=== PATIENT | female | born 1995 | race African-American/Black ===

== ENCOUNTER 2016-11-04 10:57 | Outpatient (CLI) | payer OTHER ==
[2016-11-04 11:11] VITALS: BP 140/96
[2016-11-04] MEDS ORDERED: PRENTAB9 PO (11:16)
[2016-11-04 11:58] LABS: MEAN CORPUSCULAR HEMOGLOBIN 31.7 pg (27.0-33.0); MEAN CORPUSCULAR HGB CONC 34.4 g/dl (32.0-36.5); RED CELL DISTRIBUTION WIDTH 13.1 % (11.5-14.5); WHITE BLOOD COUNT 10.3 K/mm3 (4.0-10.0)
[2016-11-04 12:18] LABS: ALBUMIN 2.8 GM/DL (3.2-5.2); ALBUMIN/GLOBULIN RATIO 0.76 (1.00-1.93); ALKALINE PHOSPHATASE 182 U/L (45-117); ALT/SGPT 17 U/L (12-78); ANION GAP 9 MEQ/L (8-16); AST/SGOT 17 U/L (15-37); BILIRUBIN,TOTAL 0.2 MG/DL (0.2-1.0); BLOOD UREA NITROGEN 9 MG/DL (7-18); CALCIUM LEVEL 9.1 MG/DL (8.5-10.1); CARBON DIOXIDE LEVEL 21 MEQ/L (21-32); CHLORIDE LEVEL 106 MEQ/L (98-107); GLUCOSE, FASTING 97 MG/DL (70-105); POTASSIUM SERUM 4.4 MEQ/L (3.5-5.1); SODIUM LEVEL 136 MEQ/L (136-145); TOTAL PROTEIN 6.5 GM/DL (6.4-8.2); URIC ACID 3.3 MG/DL (2.6-6.0)
== END 2016-11-04 13:35 | disposition home or self-care (01) ==
LOC: M LDO 10:57
PROVIDERS: ATTEND Obstetrics & Gynecology
DX: O13.3 Gestational [pregnancy-induced] hypertension without significant proteinuria, third trimester (principal); Z3A.38 38 weeks gestation of pregnancy

== ENCOUNTER 2016-11-06 18:26 | Inpatient (IN) | payer OTHER ==
[2016-11-06] VITALS (7 sets, daily range): BP systolic 124–156; BP diastolic 60–98
[~2016-11-06] VITALS: Ht 160 cm; Wt 90.8 kg
[~2016-11-06 18:26] MED LIST: PRENTAB9 PO
[2016-11-06] MEDS ORDERED: PENICILLIN G POTASSIUM IV 5 MU in D5W MINI-BAG PLUS 100 ML IV STA (18:53)
[2016-11-06 19:26] LABS: BASO % 0.4 % (0.0-1.0); EOS # 0.2 K/mm3 (0.0-0.50); EOS % 2.9 % (0.0-3.0); LARGE UNSTAINED CELL # 0.2 K/mm3 (0.0-0.4); LARGE UNSTAINED CELL % 1.9 % (0.0-4.0); LYMPH % 24.1 % (24.0-44.0); MEAN CORPUSCULAR HEMOGLOBIN 32.4 pg (27.0-33.0); MEAN CORPUSCULAR HGB CONC 34.2 g/dl (32.0-36.5); MEAN CORPUSCULAR VOLUME 94.8 fl (80.0-96.0); MONO # 0.5 K/mm3 (0.0-0.8); MONO % 6.1 % (0.0-5.0); NEUTROPHILS # 5.3 K/mm3 (1.8-7.7); NEUTROPHILS % 64.6 % (36.0-66.0); PLATELET COUNT, AUTOMATED 243 k/mm3 (150-450); RED CELL DISTRIBUTION WIDTH 12.8 % (11.5-14.5); WHITE BLOOD COUNT 8.2 K/mm3 (4.0-10.0)
[2016-11-06] MEDS ORDERED: LABETALOL HCL 100 MG/20 ML VIAL IV ONE (19:45)
[2016-11-06] MEDS: miSOPROStol 50 MCG 1/2 TAB (S0191) PO SCH ×2 (19:46→23:45)
[2016-11-06 19:55] LABS: ALT/SGPT 16 U/L (12-78); AST/SGOT 19 U/L (15-37); BILIRUBIN,TOTAL 0.2 MG/DL (0.2-1.0); CREATININE FOR GFR 0.72 MG/DL (0.55-1.02); URIC ACID 3.8 MG/DL (2.6-6.0)
[2016-11-06] MEDS ORDERED: LABETALOL HCL 100 MG/20 ML VIAL IV SCH (20:00)
[2016-11-06] MEDS ORDERED: ACETAMINOPHEN 500 MG TAB PO PRN (20:15)
[2016-11-06] MEDS ORDERED: HYDROCORTISONE 1% CREAM 30 GM TOP SCH (21:00)
[2016-11-06] MEDS ORDERED: PENICILLIN G POTASSIUM IV 2.5 MU in D5W 100 ML IV SCH (23:00)
[2016-11-07] VITALS (38 sets, daily range): BP systolic 116–159; BP diastolic 58–99
[2016-11-07] MEDS: LR 1,000 ML IV SCH ×2 (02:53→08:52)
[2016-11-07] MEDS: miSOPROStol 50 MCG 1/2 TAB (S0191) PO SCH (03:46)
[2016-11-07] MEDS ORDERED: OXYTOCIN DRIP 30 UNITS in APPROPRIATE DILUENT 1 EA IV SCH ×4 (07:30)
[2016-11-07] MEDS ORDERED: PENICILLIN G POTASSIUM IV 5 MU in D5W MINI-BAG PLUS 100 ML IV STA ×2 (08:04→08:13)
[2016-11-07] MEDS ORDERED: FENTANYL 2MCG/ML ROPIVACAINE 0.2% IN 0.9% NACL 200ML IVBAG As Ordered ONE (22:39)
[2016-11-07 22:48] LABS: MEAN CORPUSCULAR HEMOGLOBIN 30.9 pg (27.0-33.0); MEAN CORPUSCULAR HGB CONC 33.6 g/dl (32.0-36.5); MEAN CORPUSCULAR VOLUME 92.1 fl (80.0-96.0); WHITE BLOOD COUNT 10.3 K/mm3 (4.0-10.0)
[2016-11-08] VITALS (102 sets, daily range): BP systolic 119–179; BP diastolic 57–113; O2SAT 99
[2016-11-08] MEDS ORDERED: FENTANYL/ROPIVACAINE/NACL BAG 200 ML EPIDURAL SCH (00:10)
[2016-11-08] MEDS ORDERED: ePHEDrine SULFATE 25 MG/5 ML(5MG/ML) SYRINGE IV PRN ×2 (00:10→18:45)
[2016-11-08] MEDS ORDERED: EPIDURAL/PCA KEYS XX PRN ×2 (00:10→18:45)
[2016-11-08] MEDS ORDERED: NALOXONE INJ 0.4 MG/1 ML VIAL (J2310) IV PRN ×2 (00:10→18:45)
[2016-11-08] MEDS ORDERED: REFRIGERATOR IV KEYS XX PRN ×2 (00:10→18:45)
[2016-11-08] MEDS ORDERED: EPIDURAL COMMENT XX SCH ×2 (00:10→18:45)
[2016-11-08] MEDS ORDERED: diphenhydrAMINE INJ 50MG/ML VIAL (J1200) IV PRN ×2 (00:10→18:45)
[2016-11-08] MEDS ORDERED: ONDANSETRON 4MG/2ML VIAL (J2405) IV PRN ×2 (00:10→18:45)
[2016-11-08] MEDS ORDERED: LACTATED RINGER'S 1000 ML IV PRN ×2 (00:10→18:45)
[2016-11-08] MEDS ORDERED: PENICILLIN G POTASSIUM 5 MU VIAL As Ordered ONE (01:30)
[2016-11-08] MEDS: PENICILLIN G POTASSIUM IV 2.5 MU in D5W 100 ML IV SCH ×3 (05:28→13:54)
--- NOTE | 2016-11-08 09:35 | IPNPDOC ---
Text Note Date of Service The patient was seen on 11/08/16. NOTE [id number] @ [address] Pham @ 0830. 21 yo G1 @ 39+0 with pre-e without severe features. IOL started on Wednesday, [id number]. S: comfortable resting in right tilt and epidural infusing. Mother and FOB are at bedside. O: VS- BPs remain in mild range, Temp is starting to increase-currently 100.2, all other VS WNL FHR- BL-150, mod variability, + accels, early decels CTX- Q 1-3 min, lasting 50-120 seconds, palpated as strong, resting tone palpated as soft SVE- 9/100/-1, soft/ant/vtx ROM x 7 hours with thick mec PMH- sleep apnea PSH- denies Meds- PNV Allergies- NKDA GBS- positive EFW- 3600 grams A: 21 yo G1 @ 39+0 with pre-e without severe features. CAT I FHR, continued cervical change P: continue to monitor and assess, titrate pitocin per unit protocol, reassess in 2 hours or prn. VS,Fishbone, I+O VS, Fishbone, I+O Laboratory Tests 11/07/16 22:43 Red Blood Count 4.05, Mean Corpuscular Volume 92.1, Mean Corpuscular Hemoglobin 30.9, Mean Corpuscular Hemoglobin Concent 33.6, Red Cell Distribution Width 13.0 Vital Signs Date Time Temp Pulse Resp B/P (MAP) Pulse Ox O2 Delivery O2 Flow Rate FiO2 11/08/16 06:56 93 144/82 (102) 11/08/16 02:27 20 11/07/16 03:47 98.0 I&O- Last 24 Hours up to 6 AM 11/08/16 06:00 Intake Total 600 ml Output Total 1450 ml Balance -850 ml SAM ANDERSON CNM November 08, 2016 09:35
--- NOTE | 2016-11-08 11:54 | IPNPDOC ---
Text Note Date of Service The patient was seen on 11/08/16. NOTE [id number] @ 1149 Called to bedside @ 1140 for a prolonged deceleration. Upon arrival to room FHR was in the 140s. It returned to 150s within a minute. O: VS- BPs mild range, T-100.0 FHR- BL-150, moderate variability, + accels, prolonged decel and early decels CTX- Q 2-3 min, lasting 60-120 seconds Pit @ 16 mU/min SVE- anterior lip/100/+1 per RN exam A: 21 yo G1 @ 39+0 with IOL for pre-e without severe features. P: continue to monitor and assess, reassess in 1 hour, cont to titrate pitocin per unit protocol. VS,Fishbone, I+O VS, Fishbone, I+O Laboratory Tests 11/07/16 22:43 Red Blood Count 4.05, Mean Corpuscular Volume 92.1, Mean Corpuscular Hemoglobin 30.9, Mean Corpuscular Hemoglobin Concent 33.6, Red Cell Distribution Width 13.0 Vital Signs Date Time Temp Pulse Resp B/P (MAP) Pulse Ox O2 Delivery O2 Flow Rate FiO2 11/08/16 06:56 93 144/82 (102) 11/08/16 02:27 20 11/07/16 03:47 98.0 I&O- Last 24 Hours up to 6 AM 11/08/16 05:59 Intake Total 600 ml Output Total 1450 ml Balance -850 ml SAM ANDERSON CNM November 08, 2016 11:54
[2016-11-08] MEDS: LR 1,000 ML IV SCH ×2 (12:37→22:01)
[2016-11-08] MEDS ORDERED: LABETALOL HCL 100 MG/20 ML VIAL IV STA ×3 (14:28→19:03)
[2016-11-08] MEDS ORDERED: LABETALOL HCL 100 MG/20 ML VIAL As Ordered ONE (14:29)
[2016-11-08] MEDS ORDERED: MAGNESIUM SULFATE 4% INJ 20GM/500ML (40MG/ML) (J3475) As Ordered ONE ×2 (14:38→18:44)
[2016-11-08] MEDS ORDERED: MAG Sulf (L&D) 4 GM/100 ML 4 GM in APPROPRIATE DILUENT 1 EA IV ONE (14:45)
[2016-11-08] MEDS: MAG Sulf (OBGYN) 20GM/500ML 20,000 MG in APPROPRIATE DILUENT 1 EA IV SCH (14:49)
[2016-11-08 14:58] LABS: MEAN CORPUSCULAR HEMOGLOBIN 31.3 pg (27.0-33.0); MEAN CORPUSCULAR HGB CONC 33.4 g/dl (32.0-36.5); MEAN CORPUSCULAR VOLUME 93.7 fl (80.0-96.0); RED CELL DISTRIBUTION WIDTH 12.6 % (11.5-14.5); WHITE BLOOD COUNT 13.3 K/mm3 (4.0-10.0)
[2016-11-08 15:27] LABS: ALBUMIN 2.3 GM/DL (3.2-5.2); ALBUMIN/GLOBULIN RATIO 0.77 (1.00-1.93); ALKALINE PHOSPHATASE 205 U/L (45-117); ALT/SGPT 14 U/L (12-78); ANION GAP 10 MEQ/L (8-16); AST/SGOT 19 U/L (15-37); BILIRUBIN,TOTAL 0.5 MG/DL (0.2-1.0); BLOOD UREA NITROGEN 8 MG/DL (7-18); CALCIUM LEVEL 8.2 MG/DL (8.5-10.1); CARBON DIOXIDE LEVEL 18 MEQ/L (21-32); CHLORIDE LEVEL 109 MEQ/L (98-107); CREATININE FOR GFR 1.44 MG/DL (0.55-1.02); GLUCOSE, FASTING 88 MG/DL (70-105); POTASSIUM SERUM 4.6 MEQ/L (3.5-5.1); SODIUM LEVEL 137 MEQ/L (136-145); TOTAL PROTEIN 5.3 GM/DL (6.4-8.2); URIC ACID 4.1 MG/DL (2.6-6.0)
[2016-11-08] MEDS ORDERED: hydrALAZINE INJ 20 MG/ML VIAL As Ordered ONE (15:34)
--- NOTE | 2016-11-08 15:40 | IPNPDOC ---
Text Note Date of Service The patient was seen on 11/08/16. NOTE [id number] @ [address] Giordano. Informed him the patient has had multiple BPs 170s/ 90s. She was given 20 mg labetalol IV. Mag bolus started(4gram), will go to 2 grams of mag IV when bolus is complete. Informed patient has mad no progress in the 1 hour of laboring down and 30 min of pushing. Unable to determine head position d/t caput that continues to increase. Dr. Giordano informed me I was doing everything right and to keep him informed. VS,Fishbone, I+O VS, Fishbone, I+O Laboratory Tests 11/07/16 22:43 Red Blood Count 4.05, Mean Corpuscular Volume 92.1, Mean Corpuscular Hemoglobin 30.9, Mean Corpuscular Hemoglobin Concent 33.6, Red Cell Distribution Width 13.0 11/08/16 14:50 Red Blood Count 4.29, Mean Corpuscular Volume 93.7, Mean Corpuscular Hemoglobin 31.3, Mean Corpuscular Hemoglobin Concent 33.4, Red Cell Distribution Width 12.6 Vital Signs Date Time Temp Pulse Resp B/P (MAP) Pulse Ox O2 Delivery O2 Flow Rate FiO2 11/08/16 15:06 98 165/92 11/08/16 02:27 20 11/07/16 03:47 98.0 I&O- Last 24 Hours up to 6 AM 11/08/16 06:00 Intake Total 600 ml Output Total 1450 ml Balance -850 ml SAM ANDERSON CNM November 08, 2016 15:40
--- NOTE | 2016-11-08 15:42 | ED PDOC ---
Provider Note [id number] @ [address] Giordano via text @ 5630 second dose of labetalol 20 mg IV being given d/t BPs 170s/90s. SAM ANDERSON CNM November 08, 2016 15:42
[2016-11-08] MEDS ORDERED: hydrALAZINE INJ 20 MG/ML VIAL IV ONE ×3 (15:45→19:00)
--- NOTE | 2016-11-08 15:45 | IPNPDOC ---
Text Note Date of Service The patient was seen on 11/08/16. NOTE [id number] @ 1530- Sessions notified via text pt continues to have severe range BPs 25 minutes after 2nd dose of labetalol. Sessions recommended 5 mg hydralazine and keep pushing. Informed him she has not stopped pushing and has made no progress in the last 90 minutes of pushing. She also did not make progress when she labored down for 1 hour. VS,Fishbone, I+O VS, Fishbone, I+O Laboratory Tests 11/07/16 22:43 Red Blood Count 4.05, Mean Corpuscular Volume 92.1, Mean Corpuscular Hemoglobin 30.9, Mean Corpuscular Hemoglobin Concent 33.6, Red Cell Distribution Width 13.0 11/08/16 14:50 Red Blood Count 4.29, Mean Corpuscular Volume 93.7, Mean Corpuscular Hemoglobin 31.3, Mean Corpuscular Hemoglobin Concent 33.4, Red Cell Distribution Width 12.6 , Calcium Level 8.2 L, Aspartate Amino Transf (AST/SGOT) 19, Alanine Aminotransferase (ALT/SGPT) 14, Lactate Dehydrogenase 187, Alkaline Phosphatase 205 H, Total Bilirubin 0.5 #, Uric Acid 4.1, Total Protein 5.3 L, Albumin 2.3 L Vital Signs Date Time Temp Pulse Resp B/P (MAP) Pulse Ox O2 Delivery O2 Flow Rate FiO2 11/08/16 15:06 98 165/92 11/08/16 02:27 20 11/07/16 03:47 98.0 I&O- Last 24 Hours up to 6 AM 11/08/16 06:00 Intake Total 600 ml Output Total 1450 ml Balance -850 ml SAM ANDERSON CNM November 08, 2016 15:45
--- NOTE | 2016-11-08 16:31 | IPNPDOC ---
Text Note Date of Service The patient was seen on 11/08/16. NOTE [id number] @ 1600 Ms. Garrido has pushed for 2 hours with no progress, but continued increase in caput. Dr. Giordano notified. He is on his way to the hospital to evaluate. @ 9648 Dr. Giordano evaluated Ms. Garrido and discussed safest method of delivery. Recommendation for C-S d/t continued elevated station with 2 1/2 hours of pushing. Pt consents to a C-S. Pitocin and mag stopped per Dr. Giordano request. Care given to Dr. Giordano. VS,Fishbone, I+O VS, Fishbone, I+O Laboratory Tests 11/07/16 22:43 Red Blood Count 4.05, Mean Corpuscular Volume 92.1, Mean Corpuscular Hemoglobin 30.9, Mean Corpuscular Hemoglobin Concent 33.6, Red Cell Distribution Width 13.0 11/08/16 14:50 Red Blood Count 4.29, Mean Corpuscular Volume 93.7, Mean Corpuscular Hemoglobin 31.3, Mean Corpuscular Hemoglobin Concent 33.4, Red Cell Distribution Width 12.6 , Calcium Level 8.2 L, Aspartate Amino Transf (AST/SGOT) 19, Alanine Aminotransferase (ALT/SGPT) 14, Lactate Dehydrogenase 187, Alkaline Phosphatase 205 H, Total Bilirubin 0.5 #, Uric Acid 4.1, Total Protein 5.3 L, Albumin 2.3 L Vital Signs Date Time Temp Pulse Resp B/P (MAP) Pulse Ox O2 Delivery O2 Flow Rate FiO2 11/08/16 15:06 98 165/92 11/08/16 02:27 20 11/07/16 03:47 98.0 I&O- Last 24 Hours up to 6 AM 11/08/16 06:00 Intake Total 600 ml Output Total 1450 ml Balance -850 ml SAM ANDERSON CNM November 08, 2016 16:31
--- NOTE | 2016-11-08 16:43 | IPNPDOC ---
Text Note Date of Service The patient was seen on 11/08/16. NOTE I was called to evaluate this pt. Chart reviewed. Admitted the evening at 38+ 5 with the dx of CARRILLOTN. Miso X3 and pitocin. Passive descent for 1 hr. Has been pushing 2.5 hrs and per CNM caring for her has not moved the vtx at all, only caput has increased. When I examined her her pelvic is narrow and the vtx is not descended past 0 station. Unable to tell position due to significant edema of the labia and high station. NST is reassuring, reg ctx's. Mag sulfate was started a few hours ago due to several severe range BP's, received Labetalol and Hydralazine IV while pushing. I rec delivery for arrest of descent. Meconium is present, will have the hematology technologist at delivery. Informed consent obtained. Mag sulfate and Pitocin shut off. Dr Corley, anesthesia, called. To OR Sessions VS,Candido, I+O VS, Candido I+O Laboratory Tests 11/07/16 22:43 Red Blood Count 4.05, Mean Corpuscular Volume 92.1, Mean Corpuscular Hemoglobin 30.9, Mean Corpuscular Hemoglobin Concent 33.6, Red Cell Distribution Width 13.0 11/08/16 14:50 Red Blood Count 4.29, Mean Corpuscular Volume 93.7, Mean Corpuscular Hemoglobin 31.3, Mean Corpuscular Hemoglobin Concent 33.4, Red Cell Distribution Width 12.6 , Calcium Level 8.2 L, Aspartate Amino Transf (AST/SGOT) 19, Alanine Aminotransferase (ALT/SGPT) 14, Lactate Dehydrogenase 187, Alkaline Phosphatase 205 H, Total Bilirubin 0.5 #, Uric Acid 4.1, Total Protein 5.3 L, Albumin 2.3 L Vital Signs Date Time Temp Pulse Resp B/P (MAP) Pulse Ox O2 Delivery O2 Flow Rate FiO2 11/08/16 15:39 172/102 11/08/16 15:06 98 11/08/16 02:27 20 11/07/16 03:47 98.0 I&O- Last 24 Hours up to 6 AM 11/08/16 06:00 Intake Total 600 ml Output Total 1450 ml Balance -850 ml SESSIONS,YOHANA Pendleton MD November 08, 2016 16:43
[2016-11-08] MEDS ORDERED: BICITRA 30ML SOLN UDC PO ONE (16:45)
[2016-11-08] MEDS ORDERED: OXYTOCIN INJ 10 UNITS/ML VIAL (J2590) As Ordered ONE (16:52)
[2016-11-08] MEDS ORDERED: LIDOCAINE 2% W/EPIN INJ 20ML **PRES FREE As Ordered ONE ×2 (16:55→17:17)
[2016-11-08 17:47] LABS: CORD GAS ABE V -6.7; CORD GAS HCO3 V 20.6 MEQ/L; CORD GAS PCO2 V 47.4 mmHg; CORD GAS PH V 7.256 UNITS; CORD GAS PO2 V 20.3 mmHg; CORD GAS SBC V 17.8 MEQ/L; CORD GAS TCO2 V 22.1 MEQ/L
[2016-11-08 17:48] LABS: CORD GAS O2 SAT A < 15.0 %; CORD GAS PO2 A 10.8 mmHg
[2016-11-08 17:50] LABS: CORD GAS HCO3 A 23.2 MEQ/L; CORD GAS PH A 7.198 UNITS; CORD GAS TCO2 A 25.1 MEQ/L
[2016-11-08] MEDS ORDERED: CALCIUM GLUCONATE 1,000 MG in D5W MINI-BAG PLUS 100 ML IV PRN (18:30)
[2016-11-08] MEDS ORDERED: MEASLES,MUMPS,RUBELLA VACCINE INJ (MMR-II) (90707) SC SCH (18:30)
[2016-11-08] MEDS ORDERED: METOCLOPRAMIDE INJ 10MG/2ML VIAL (J2765) IV PRN (18:30)
[2016-11-08] MEDS ORDERED: RHOGAM 300 MCG (1500 IU) INJ (J2790) IM SCH (18:30)
[2016-11-08] MEDS ORDERED: ROPIVACAINE HCL IVBAG 200 ML EPIDURAL SCH (19:00)
[2016-11-08] MEDS: KETOROLAC 30 MG/ML VIAL (J1885) IV SCH (20:00)
[2016-11-08] MEDS ORDERED: LABETALOL 200 MG TAB PO SCH (20:00)
[2016-11-08] MEDS: DOCUSATE SODIUM 100 MG CAP PO SCH (21:52)
[2016-11-08] MEDS: LABETALOL 200 MG TAB PO SCH (22:08)
[2016-11-09] VITALS (14 sets, daily range): BP systolic 115–136; BP diastolic 57–82; O2SAT 97–99
[2016-11-09] MEDS: KETOROLAC 30 MG/ML VIAL (J1885) IV SCH ×3 (01:42→13:48)
[2016-11-09] MEDS: MAG Sulf (OBGYN) 20GM/500ML 20,000 MG in APPROPRIATE DILUENT 1 EA IV SCH (05:02)
[2016-11-09] MEDS: LABETALOL 200 MG TAB PO SCH ×3 (05:14→21:41)
[2016-11-09 05:23] LABS: MEAN CORPUSCULAR HEMOGLOBIN 32.1 pg (27.0-33.0); MEAN CORPUSCULAR HGB CONC 34.3 g/dl (32.0-36.5); MEAN CORPUSCULAR VOLUME 93.6 fl (80.0-96.0); RED CELL DISTRIBUTION WIDTH 12.8 % (11.5-14.5); WHITE BLOOD COUNT 16.2 K/mm3 (4.0-10.0)
[2016-11-09 05:52] LABS: ALT/SGPT 11 U/L (12-78); AST/SGOT 25 U/L (15-37); BILIRUBIN,TOTAL 0.4 MG/DL (0.2-1.0); URIC ACID 4.8 MG/DL (2.6-6.0)
[2016-11-09] MEDS: LR 1,000 ML IV SCH (09:35)
[2016-11-09] MEDS: PRENATAL VITAMIN TAB PO SCH (09:44)
[2016-11-09] MEDS: DOCUSATE SODIUM 100 MG CAP PO SCH ×2 (09:44→21:40)
[2016-11-09] MEDS: PERCOCET 5MG/325MG TAB PO PRN ×2 (09:44→18:51)
[2016-11-09] MEDS ORDERED: SLF 3 ML SYR IV PRN (09:45)
--- NOTE | 2016-11-09 09:59 | RO ---
DATE OF PROCEDURE: 11/08/2016 PREOPERATIVE DIAGNOSIS: Arrest of descent after 2-1/2 hours of pushing. POSTOPERATIVE DIAGNOSIS: Arrest of descent after 2-1/2 hours of pushing. PROCEDURE: Primary delivery. SURGEON: Twan Giordano MD [employer] DEPARTMENT CHAIR: Camila Gaines CNM ANESTHESIA: Epidural. ESTIMATED BLOOD LOSS: 500 mL. DRAINS: 100 mL of clear urine out the Nogueira catheter at the end of the procedure. FLUIDS: 1500 Lactated Ringer's. PATHOLOGY: Placenta. INDICATION: Patient was admitted at 38 plus 5 with a new diagnosis of gestational hypertension. She underwent a misoprostol and eventual pitocin induction. She was found to be complete, allowed for passive descent for 1 hour and then pushed for approximately 2-1/2 hours, at which time the finance attorney called me due to no real descent of the bony vertex, caput noted to have descended only. Of note, the patient needed IV antihypertensives times three while pushing, therefore the diagnosis of preeclampsia with severe features was made and the patient was started on magnesium while pushing. I examined the patient and the station was not below 0 station and the patient had very poor pushing effort. I recommended that we undergo a primary delivery and the patient agreed and informed consent was obtained. Due to the presence of meconium, the ice skating coach was called to be present at delivery and anesthesia was informed as well. DESCRIPTION OF OPERATION: Patient was taken to the operating room with the Nogueira in place. I replaced the dorsal supine position with a leftward tilt. She was then prepped and draped after a quick prep in a normal sterile fashion. We had to wait several minutes for a little bit more of medication to be introduced via the epidural catheter before we could start because the patient was feeling the test maneuvers at the lower portion of her abdomen. When the epidural was found to be finally adequate, we made a Pfannenstiel skin incision, which was carried down to the layer of the fascia which was nicked in the midline. This fascial incision was extended bilaterally the extent of the incision. The superior aspect of the fascia was tented up. The underlying rectus muscles were dissected off sharply in the midline. This was repeated inferiorly without difficulty. The rectus muscles were and the peritoneum was identified, entered bluntly by primary surgeon, a quick abdominal inspection revealed no scar tissue present and a stretching maneuver created and adequate peritoneal window. Bladder blade was placed. A bladder flap was created and a low transverse uterine incision was performed without difficulty. This was stretched to adequacy and the infants lips and nose were immediately evident as well as a significant amount of caput and the infant was noted to be significantly impacted into the bony pelvis. With some difficulty, I was finally able to extend my hand past the infants forehead and flex the head to disengage the vacuum suction in the lower bony pelvis. With the head flexed, the head and shoulders easily delivered through the uterine incision with fundal pressure. The infant had good tone, had an immediate cry, and the cord was clamped times two and cut. The was taken immediately to the awaiting resuscitation team and ice skating coach. Cord gases were obtained. Cord blood was obtained. The cord gases were noted to be arterial 7.19 with a base excess of -6 and venous 7.26 with a base excess of -6.7. Cord blood was also obtained. The placenta was then delivered with direct traction and fundal massage. Pitocin was already running. The uterus was delivered through the abdomen and wrapped in a warm sponge and cleared of all clots and debris times two with the dry sponges. There was an extension of the uterine incision on the right side, which apex was clamped with an Allis clamp for easier identified further on with the closure. A running suture of #0 from left to right was then performed in a locked fashion without difficulty, incorporating the extension as well without difficulty. I then imbricated from right to left with an #0 Monocryl without difficulty. Hemostasis was obtained with a single extra figure-of-8 suture of #2-0 Vicryl in the midline. Hemostasis was confirmed. Irrigation was performed behind the uterus. The uterus was returned to the anatomical position. The pericolic gutters were cleared with a sponge of all clots and debris bilaterally. One final inspection confirmed hemostasis from the uterine incision. The peritoneum was then closed with a #2-0 Vicryl from superior to inferior. Hemostasis was assured on the rectus bellies. The fascia was closed from left to right without difficulty with an #0 Vicryl. The subcutaneous tissue was copiously irrigated and made to be hemostatic and closed with a #2-0 Vicryl. The skin was then closed with a subcuticular running suture of #4-0 Monocryl from left to right. Steri-Strips were placed. A pressure dressing was placed. The uterus was significantly mashed and with bimanual exam, the vagina and cervix were cleared of all clots and debris. The uterus was noted to be firm and at U -1 prior to leaving the operating room. She was then transferred to the PCU where she will be monitored overnight with continuous oxygen saturations due to her need for magnesium sulfate and her known obstructive sleep apnea, with a goal to maintain sats above 94% with whatever means of oxygen is necessary. We will also continue her magnesium sulfate for a minimum of 12 hours, which will be reevaluated in the morning.
--- NOTE | 2016-11-09 10:17 | IPNPDOC ---
Text Note Date of Service The patient was seen on 11/09/16. NOTE POD1 Prognote S/P yest at 1735 for arrest of descent. IOL for 2 days prior to pushing for GHTN. Pre-E with severe features dx'd while in labor. Needed IV HTN meds while pushing and in the PACU, placed on Labetalol 200 TID PO overnight. Since then her BP's have been nl or mildly elevated only. Watched overnight in the PCU due to significant MARE. Was snoring during the even while awake. Her O2 sats were nl overnight on 2 L NC. States feeling OK, pain manageable. VB slowing. Nursing going OK. No CP/SOB/ LP. No DENNISON or RUQ pain. No vis changes. This AM Hct is 33.7, Plt 208, Cr 1.0, Uric 4.8, AST 25, ALT 11, LDH 280 UO was 200-300/hr overnight. Inc is CDI, bandage removd, steri's intact Ut is U-2, firm Ext with 1+ DTR's, no clonus a/p: Doing well, t-anastacio back to maternity, no need for further cont pulse ox and O2, d/c Mag sulfate, d/c mcclendon. routine postop care. Likely d/c on WED AM. Sessions VSCandido, I+O VSCandido I+O Laboratory Tests 11/08/16 14:50 Red Blood Count 4.29, Mean Corpuscular Volume 93.7, Mean Corpuscular Hemoglobin 31.3, Mean Corpuscular Hemoglobin Concent 33.4, Red Cell Distribution Width 12.6 , Calcium Level 8.2 L, Aspartate Amino Transf (AST/SGOT) 19, Alanine Aminotransferase (ALT/SGPT) 14, Lactate Dehydrogenase 187, Alkaline Phosphatase 205 H, Total Bilirubin 0.5 #, Uric Acid 4.1, Total Protein 5.3 L, Albumin 2.3 L 11/09/16 04:37 Red Blood Count 3.59 L, Mean Corpuscular Volume 93.6, Mean Corpuscular Hemoglobin 32.1, Mean Corpuscular Hemoglobin Concent 34.3, Red Cell Distribution Width 12.8, Aspartate Amino Transf (AST/SGOT) 25, Alanine Aminotransferase (ALT/SGPT) 11 L, Lactate Dehydrogenase 280 H, Total Bilirubin 0.4, Uric Acid 4.8 Vital Signs Date Time Temp Pulse Resp B/P (MAP) Pulse Ox O2 Delivery O2 Flow Rate FiO2 11/09/16 09:44 18 11/09/16 08:00 99 Nasal Cannula 2.0 11/09/16 08:00 97.6 91 133/75 (94) I&O- Last 24 Hours up to 6 AM 11/09/16 06:00 Intake Total 4485 ml Output Total 2785 ml Balance 1700 ml SESSIONS,YOHANA Pendleton MD November 09, 2016 10:17
[2016-11-09] MEDS: SLF 3 ML SYR IV SCH ×2 (15:02→22:00)
[2016-11-09] MEDS: IBUPROFEN 800 MG TAB PO SCH (21:40)
[2016-11-10 02:16] VITALS: BP 135/69
[2016-11-10] MEDS: IBUPROFEN 800 MG TAB PO SCH ×3 (05:25→21:35)
[2016-11-10] MEDS: LABETALOL 200 MG TAB PO SCH ×3 (05:26→21:36)
[2016-11-10] MEDS: SLF 3 ML SYR IV SCH (06:00)
[2016-11-10 06:09] VITALS: BP 137/74
--- NOTE | 2016-11-10 06:59 | IPNPDOC ---
Text Note Date of Service The patient was seen on 11/10/16. NOTE POD2 Prog note States feeling well no heavy VB. Pain controlled. Brst feeding, bonding well. Voiding and ambulatory. No DENNISON/vis changes/RUQ pain. Labetalol 200 TID working well. VSSAF Ut at [facility] CDI Ext no CCE a/p: Doing well. Routine postop care. likely d/c tomorrow Sessions VS,Candido, I+O VSCandido I+O Vital Signs Date Time Temp Pulse Resp B/P (MAP) Pulse Ox O2 Delivery O2 Flow Rate FiO2 11/10/16 06:09 98.6 99 18 137/74 (95) 11/10/16 02:16 97 Room Air 11/09/16 08:00 2.0 I&O- Last 24 Hours up to 6 AM 11/10/16 06:00 Intake Total 1922 ml Output Total 1425 ml Balance 497 ml JENN,YOHANA Pendleton MD November 10, 2016 06:59
[2016-11-10] MEDS: DOCUSATE SODIUM 100 MG CAP PO SCH ×2 (08:56→21:34)
[2016-11-10] MEDS: PRENATAL VITAMIN TAB PO SCH (08:56)
[2016-11-10 10:00] VITALS: BP 140/86
[2016-11-10] MEDS: PERCOCET 5MG/325MG TAB PO PRN (10:05)
[2016-11-10 14:00] VITALS: BP 138/83
[2016-11-10 18:00] VITALS: BP 142/67
[2016-11-10 22:18] VITALS: BP 138/85
[2016-11-11 02:29] VITALS: BP 127/66
[2016-11-11] MEDS: IBUPROFEN 800 MG TAB PO SCH (05:22)
[2016-11-11 05:23] VITALS: BP 131/75
[2016-11-11] MEDS: LABETALOL 200 MG TAB PO SCH (05:23)
[2016-11-11 05:59] VITALS: BP 131/75
--- NOTE | 2016-11-11 07:06 | DS.PDOC ---
Discharge Summary General Date of Admission November 06, 2016 at 18:26 Date of Discharge [id number] Discharge Summary PROCEDURES PERFORMED DURING STAY: Primary Section ADMITTING DIAGNOSES: Induction for gestational hypertension DISCHARGE DIAGNOSES: 1. Healthy female infant 2. Failed induction HOSPITAL COURSE: Underwent an uncomplicated delivery after pushing for 2.5 hours. The baby never descended below 0 station and he was straight occiput posterior, tightly wedged into the pelvis. See delivery note. DISCHARGE MEDICATIONS: Motrin, Colace, Percocet, Lanolin, Labetalol 200 every 8 hours Physical exam: see note from this morning LABORATORY DATA: Please see below. ACTIVITY: As tolerated. Nothing in vagina for 6 weeks. No bathing for 2 weeks , shower only. No driving for 2 weeks. Follow up in 1 week in clinic for BP check. DIET: regular DISPOSITION:stable TIME SPENT ON DISCHARGE: Greater than 15 minutes. Sessions Vital Signs/I&Os Vital Signs Date Time Temp Pulse Resp B/P (MAP) Pulse Ox O2 Delivery O2 Flow Rate FiO2 11/11/16 05:59 99.4 101 16 131/75 (93) 11/10/16 22:18 99 Room Air 11/09/16 08:00 2.0 Discharge Medications Scheduled Multivitamins/ ( 27-0.8 mg) 1 Tab Tab, 1 TAB PO DAILY, (Reported ) Allergies Coded Allergies: No Known Allergies (Unverified , 11/04/16) SESSIONS,YOHANA Pendleton MD November 11, 2016 07:06
--- NOTE | 2016-11-11 07:08 | IPNPDOC ---
Text Note Date of Service The patient was seen on 11/11/16. NOTE POD2 Prog note States feeling well no heavy VB. Pain controlled. Brst feeding, bonding well. Voiding and ambulatory. VSSAF, BP's good Ut at U3, [facility] CDI Ext no CCE a/p: Doing well. Routine postop care. D/C this AM. Sessions VS,Candido, I+O VSCandido, I+O Vital Signs Date Time Temp Pulse Resp B/P (MAP) Pulse Ox O2 Delivery O2 Flow Rate FiO2 11/11/16 05:59 99.4 101 16 131/75 (93) 11/10/16 22:18 99 Room Air 11/09/16 08:00 2.0 SESSIONS,YOHANA Pendleton MD November 11, 2016 07:08
[2016-11-11] MEDS ORDERED: LABE10TAB PO (08:16)
[2016-11-11] MEDS ORDERED: IBUP-1114 PO (08:16)
[2016-11-11] MEDS ORDERED: COLA100C3 PO (08:16)
[2016-11-11] MEDS ORDERED: OXYC1TAB23 PO (08:16)
[2016-11-11] MEDS: PRENATAL VITAMIN TAB PO SCH (08:39)
[2016-11-11] MEDS: DOCUSATE SODIUM 100 MG CAP PO SCH (08:39)
[2016-11-11] MEDS: PERCOCET 5MG/325MG TAB PO PRN (08:52)
[2016-11-11 10:00] VITALS: BP 158/81
== END 2016-11-11 12:30 | disposition home or self-care (01) | DRG 766 ==
LOC: M LDI 18:26 → M PCU 11-08 20:33 → M OBS 11-09 10:27
PROVIDERS: ADMIT Advanced Practice Midwife; ATTEND Advanced Practice Midwife
PROC: 3E033VJ Introduction of Other Hormone into Peripheral Vein, Percutaneous Approach (ICD-10-PCS; 2016-11-06)
PROC: 3E0DXGC Introduction of Other Therapeutic Substance into Mouth and Pharynx, External Approach (ICD-10-PCS; 2016-11-06)
PROC: 10D00Z1 Extraction of Products of Conception, Low, Open Approach (ICD-10-PCS; principal; 2016-11-08 17:26)
DX: O14.14 Severe pre-eclampsia complicating childbirth (principal); Z37.0 Single live birth; Z3A.38 38 weeks gestation of pregnancy; O77.0 Labor and delivery complicated by meconium in amniotic fluid; O32.4XX0 Maternal care for high head at term, not applicable or unspecified; O99.820 Streptococcus B carrier state complicating pregnancy

== ENCOUNTER 2017-06-02 11:15 | Emergency (ER) | payer OTHER ==
[~2017-06-02] VITALS: Ht 160 cm; Wt 74.5 kg
[~2017-06-02 11:15] MED LIST changes: +COLA100C5 PO; +IBUP-1114 PO; +LABE10TAB PO; +OXYC1TAB23 PO
[2017-06-02] MEDS ORDERED: NS 1,000 ML IV ONE (12:30)
[2017-06-02] MEDS ORDERED: MORPHINE 4 MG/ML 1ML SYRINGE IV PRN (12:30)
[2017-06-02] MEDS ORDERED: ONDANSETRON 4MG/2ML VIAL (J2405) IV ONE (12:30)
[2017-06-02 12:54] LABS: BASO % 0.7 % (0.0-1.0); EOS # 0.2 10^3/uL (0.0-0.50); EOS % 2.5 % (0.0-3.0); IMMATURE GRANULOCYTE % 0.2 % (0-0); LYMPH % 48.4 % (24.0-44.0); MEAN CORPUSCULAR HEMOGLOBIN 30.6 pg (27.0-33.0); MEAN CORPUSCULAR HGB CONC 34.5 g/dl (32.0-36.5); MEAN CORPUSCULAR VOLUME 88.6 fl (80.0-96.0); MONO # 0.4 10^3/uL (0.0-0.8); NEUTROPHILS # 2.5 10^3/uL (1.8-7.7); NEUTROPHILS % 41.2 % (36.0-66.0); PLATELET COUNT, AUTOMATED 291 10^3/uL (150-450); RED CELL DISTRIBUTION WIDTH 12.6 % (11.5-14.5); WHITE BLOOD COUNT 6.1 10^3/uL (4.0-10.0)
[2017-06-02 14:15] LABS: CONTROL LINE UCG INT CTR LINE PRESENT
[2017-06-02 14:22] LABS: ALBUMIN 3.8 GM/DL (3.2-5.2); ALBUMIN/GLOBULIN RATIO 1.23 (1.00-1.93); ALKALINE PHOSPHATASE 77 U/L (45-117); ALT/SGPT 24 U/L (12-78); ANION GAP 7 MEQ/L (8-16); AST/SGOT 16 U/L (7-37); BILIRUBIN,DIRECT 0.1 MG/DL (0.0-0.2); BILIRUBIN,TOTAL 0.5 MG/DL (0.2-1.0); BLOOD UREA NITROGEN 7 MG/DL (7-18); CALCIUM LEVEL 9.1 MG/DL (8.5-10.1); CARBON DIOXIDE LEVEL 29 MEQ/L (21-32); CHLORIDE LEVEL 106 MEQ/L (98-107); CREATININE FOR GFR 0.72 MG/DL (0.55-1.02); GLUCOSE, FASTING 82 MG/DL (70-105); POTASSIUM SERUM 3.9 MEQ/L (3.5-5.1); SODIUM LEVEL 142 MEQ/L (136-145); TOTAL PROTEIN 6.9 GM/DL (6.4-8.2)
--- NOTE | 2017-06-02 16:17 | REP ---
Pelvic sonography: History: Suprapubic pain. Findings: Transabdominal and transvaginal scanning are performed. Uterine dimensions are normal at 8.3 x 4.9 x 4.9 cm. Visualized bladder mcgrath are smooth. The uterus is somewhat retroverted. Endometrial echo is 2.0 cm in greatest thickness. No focal uterine mass is seen. There is a small quantity of physiologic fluid in the cul-de-sac. The right ovary has a normal appearance with dimensions of 3.0 x 2.2 x 3.2 cm. Its Doppler flow was normal. Resistive index is 0.47. The left ovary measures 3.3 x 2.1 x 2.3 cm. Its Doppler flow is normal with resistive index 0.43. There is a 1.8 x 1.6 x 1.4 cm hypoechoic cyst in the left ovary consistent with a hemorrhagic follicle. Impression: 1.8 cm hemorrhagic follicle cyst left ovary. Retroverted uterus. Otherwise negative. Signed by Jeramie Meza MD 06/02/2017 04:32 P
[2017-06-02] MEDS ORDERED: IBUP-1022 PO (16:46)
[2017-06-02 16:52] VITALS: BP 123/69
== END 2017-06-02 16:59 | disposition home or self-care (01) ==
LOC: M ED 11:15
DX: N83.292 Other ovarian cyst, left side (principal); N85.4 Malposition of uterus; G47.30 Sleep apnea, unspecified
CPT/HCPCS: 36415; 76830; 76856; 80048; 80076; 81001; 83690; 84703; 85025; 87086; 93976; 96361; 96374; 96375; 99284; J2405

== ENCOUNTER → 2017-09-09 | Outpatient (CLI) | payer OTHER ==
[~2017-09-09] MED LIST changes: -COLA100C5 PO; -IBUP-1114 PO; -LABE10TAB PO; +METHACHOLINE KIT (J7674) INH; -OXYC1TAB23 PO; -PRENTAB9 PO
== END ==
LOC: M CARPUL 12:48
DX: R06.02 Shortness of breath (principal)

== ENCOUNTER 2017-09-14 13:09 | Emergency (ER) | payer OTHER ==
[2017-09-14 15:15] LABS: CPK CREATINE PHOSPHOKINASE 206 U/L (26-192); MB/CK RELATIVE INDEX 0.48 (< OR =4); TROPONIN I < 0.02 NG/ML (< 0.10)
[2017-09-14 15:23] LABS: THYROID STIMULATING HORMONE 0.856 uIU/ML (0.358-3.740)
== END 2017-09-14 15:52 | disposition home or self-care (01) ==
LOC: M ED 13:09
DX: R07.89 Other chest pain (principal); G47.30 Sleep apnea, unspecified; Z88.0 Allergy status to penicillin
CPT/HCPCS: 71046

== ENCOUNTER 2017-10-18 16:24 | Emergency (ER) | payer OTHER | END 2017-10-18 19:22 | disposition home or self-care (01) | LOC: M ED 16:24 | DX: H65.03 Acute serous otitis media, bilateral (principal); J45.909 Unspecified asthma, uncomplicated; Z88.0 Allergy status to penicillin; Z79.51 Long term (current) use of inhaled steroids | CPT/HCPCS: 99283 ==

== ENCOUNTER 2018-03-18 16:24 | Emergency (ER) | payer OTHER | END 2018-03-18 16:42 | disposition home or self-care (01) | LOC: M ED 16:24 | DX: J45.901 Unspecified asthma with (acute) exacerbation (principal); H66.92 Otitis media, unspecified, left ear; G47.33 Obstructive sleep apnea (adult) (pediatric); Z88.0 Allergy status to penicillin; Z79.899 Other long term (current) drug therapy; Z79.51 Long term (current) use of inhaled steroids | CPT/HCPCS: 87880 ==

== ENCOUNTER 2018-03-25 10:17 | Emergency (ER) | payer OTHER ==
[2018-03-25] MEDS: ALBUTEROL SULFATE 2.5 MG/0.5 ML INH NEB SOLN NEB (10:57)
[2018-03-25] MEDS: NS 1,000 ML IV (11:00)
[2018-03-25 11:23] LABS: BASO % 0.5 % (0.0-1.0); EOS # 0.2 10^3/uL (0.0-0.50); EOS % 2.4 % (0.0-3.0); HEMOGLOBIN 15.1 g/dl (12.0-15.5); IMMATURE GRANULOCYTE % 0.4 % (0-3.0); LYMPH # 1.7 10^3/uL (1.5-6.5); LYMPH % 21.2 % (24.0-44.0); MEAN CORPUSCULAR HEMOGLOBIN 29.7 pg (27.0-33.0); MEAN CORPUSCULAR HGB CONC 33.6 g/dl (32.0-36.5); MEAN CORPUSCULAR VOLUME 88.4 fl (80.0-96.0); MONO # 0.7 10^3/uL (0.0-0.8); MONO % 8.2 % (0.0-5.0); NEUTROPHILS # 5.4 10^3/uL (1.8-7.7); NEUTROPHILS % 67.3 % (36.0-66.0); PLATELET COUNT, AUTOMATED 301 10^3/uL (150-450); RED BLOOD COUNT 5.09 10^6/uL (4.00-5.40)
[2018-03-25 11:44] LABS: CONTROL LINE HCG INT CTR LINE PRESENT; HCG, SERUM QUALITATIVE NEGATIVE (NEGATIVE); KETONE, URINE AUTO RFX NEGATIVE (NEGATIVE); LEUKOCYTE ESTERASE UR AUTO RFX NEGATIVE (NEGATIVE); MUCUS, URINE RFX SMALL (NEGATIVE); NITRITE, URINE AUTO RFX NEGATIVE (NEGATIVE); RBC, URINE AUTO RFX 0 /HPF (0-3); SPECIFIC GRAVITY UR AUTO RFX 1.009 (1.002-1.035); SQUAM EPITHELIAL CELL UR AURFX 2 /HPF (0-6); WBC, URINE AUTO RFX 0 /HPF (0-3)
[2018-03-25 11:59] LABS: ALBUMIN 3.9 GM/DL (3.2-5.2); ALBUMIN/GLOBULIN RATIO 1.08 (1.00-1.93); ALKALINE PHOSPHATASE 81 U/L (45-117); ALT/SGPT 21 U/L (12-78); AMYLASE 95 U/L (25-115); ANION GAP 9 MEQ/L (8-16); AST/SGOT 22 U/L (7-37); BILIRUBIN,DIRECT < 0.1 MG/DL (0.0-0.2); BILIRUBIN,TOTAL 0.3 MG/DL (0.2-1.0); BLOOD UREA NITROGEN 10 MG/DL (7-18); CALCIUM LEVEL 9.1 MG/DL (8.5-10.1); CARBON DIOXIDE LEVEL 27 MEQ/L (21-32); CHLORIDE LEVEL 104 MEQ/L (98-107); CREATININE FOR GFR 0.85 MG/DL (0.55-1.30); GLOMERULAR FILTRATION RATE > 60.0 (>60); GLUCOSE, FASTING 75 MG/DL (70-100); LIPASE 91 U/L (73-393); POTASSIUM SERUM 4.2 MEQ/L (3.5-5.1); SODIUM LEVEL 140 MEQ/L (136-145); TOTAL PROTEIN 7.5 GM/DL (6.4-8.2)
[2018-03-25] MEDS ORDERED: ISOVUE-370 76% 100ML VIAL (Q9967) As Ordered (12:17)
== END 2018-03-25 13:32 | disposition home or self-care (01) ==
LOC: M ED 10:17
DX: J06.9 Acute upper respiratory infection, unspecified (principal); R10.9 Unspecified abdominal pain; R19.7 Diarrhea, unspecified; J45.909 Unspecified asthma, uncomplicated; G47.30 Sleep apnea, unspecified; Z79.899 Other long term (current) drug therapy; Z88.0 Allergy status to penicillin
CPT/HCPCS: Q9967

== ENCOUNTER 2018-05-21 09:22 | Emergency (ER) | payer OTHER ==
[2018-05-21 10:10] LABS: BASO % 0.1 % (0.0-1.0); HEMATOCRIT 42.8 % (36.0-47.0); HEMOGLOBIN 14.6 g/dl (12.0-15.5); IMMATURE GRANULOCYTE % 0.2 % (0-3.0); LYMPH # 0.4 10^3/uL (1.5-6.5); LYMPH % 5.1 % (24.0-44.0); MEAN CORPUSCULAR HEMOGLOBIN 30.2 pg (27.0-33.0); MEAN CORPUSCULAR HGB CONC 34.1 g/dl (32.0-36.5); MEAN CORPUSCULAR VOLUME 88.4 fl (80.0-96.0); MONO # 0.4 10^3/uL (0.0-0.8); MONO % 5.2 % (0.0-5.0); NEUTROPHILS # 7.4 10^3/uL (1.8-7.7); NEUTROPHILS % 89.4 % (36.0-66.0); PLATELET COUNT, AUTOMATED 241 10^3/uL (150-450); RED BLOOD COUNT 4.84 10^6/uL (4.00-5.40); RED CELL DISTRIBUTION WIDTH 12.4 % (11.5-14.5); WHITE BLOOD COUNT 8.3 10^3/uL (4.0-10.0)
[2018-05-21 10:16] LABS: KETONE, URINE AUTO RFX NEGATIVE (NEGATIVE); LEUKOCYTE ESTERASE UR AUTO RFX NEGATIVE (NEGATIVE); MUCUS, URINE RFX SMALL (NEGATIVE); NITRITE, URINE AUTO RFX NEGATIVE (NEGATIVE); RBC, URINE AUTO RFX 2 /HPF (0-3); SPECIFIC GRAVITY UR AUTO RFX 1.029 (1.002-1.035); SQUAM EPITHELIAL CELL UR AURFX 2 /HPF (0-6); WBC, URINE AUTO RFX 2 /HPF (0-3)
[2018-05-21] MEDS: ONDANSETRON 4MG/2ML VIAL (J2405) IV (10:16)
[2018-05-21 10:38] LABS: ALBUMIN/GLOBULIN RATIO 1.18 (1.00-1.93); ALKALINE PHOSPHATASE 85 U/L (45-117); ALT/SGPT 30 U/L (12-78); ANION GAP 5 MEQ/L (8-16); AST/SGOT 21 U/L (7-37); BILIRUBIN,DIRECT 0.1 MG/DL (0.0-0.2); BILIRUBIN,TOTAL 0.4 MG/DL (0.2-1.0); BLOOD UREA NITROGEN 13 MG/DL (7-18); CALCIUM LEVEL 8.7 MG/DL (8.5-10.1); CARBON DIOXIDE LEVEL 27 MEQ/L (21-32); CHLORIDE LEVEL 104 MEQ/L (98-107); CREATININE FOR GFR 0.89 MG/DL (0.55-1.30); GLOMERULAR FILTRATION RATE > 60.0 (>60); GLUCOSE, FASTING 102 MG/DL (70-100); LIPASE 74 U/L (73-393); POTASSIUM SERUM 3.6 MEQ/L (3.5-5.1); SODIUM LEVEL 136 MEQ/L (136-145); TOTAL PROTEIN 7.4 GM/DL (6.4-8.2)
[2018-05-21] MEDS: ACETAMINOPHEN TAB 650MG DOSE (2X325MG) PO (11:45)
== END 2018-05-21 11:47 | disposition home or self-care (01) ==
LOC: M ED 09:22
DX: R10.84 Generalized abdominal pain (principal); R11.0 Nausea; R19.7 Diarrhea, unspecified; Z98.890 Other specified postprocedural states; Z88.0 Allergy status to penicillin
CPT/HCPCS: J2405